=== PATIENT | female | born 1945 | race Caucasian/White ===

== ENCOUNTER 2021-07-07 14:19 | Inpatient (IN) | payer MEDICARE, MEDICAID ==
[~2021-07-07] VITALS: Ht 162.6 cm; Wt 60.9 kg
[2021-07-07 15:11] LABS: HEMOGLOBIN 13.4 gm/dl (12.3-15.3); RED BLOOD COUNT 4.47 M/UL (4.00-5.10)
[2021-07-07 15:41] LABS: BUN/CREATININE RATIO 32 (0-10)
[2021-07-07] MEDS ORDERED: ATORVASTATIN CA80 MG PO (21:10)
[2021-07-07] MEDS ORDERED: ISOSORBIDE MONO60 MG PO (21:10)
[2021-07-07] MEDS ORDERED: COREG 12.5MG12.5 MG PO (21:11)
[2021-07-07] MEDS ORDERED: PROTONIX 40 MG40 M1 PO (21:11)
[2021-07-07] MEDS ORDERED: CITALOPRAM HBR20 MG PO (21:11)
[2021-07-07] MEDS ORDERED: ASPIRIN CHEWABL81 MG PO (21:12)
[2021-07-07] MEDS ORDERED: NICOTINE PATCH1 EAC5 TD (21:12)
[2021-07-08 03:53] LABS: HEMOGLOBIN 10.7 gm/dl (12.3-15.3); RED BLOOD COUNT 3.68 M/UL (4.00-5.10); WHITE BLOOD COUNT 19.9 K/UL (4.5-11.0)
[2021-07-08] MEDS ORDERED: MELATONIN10 M2 PO (21:13)
[2021-07-09 04:41] LABS: HEMOGLOBIN 9.9 gm/dl (12.3-15.3); RED BLOOD COUNT 3.36 M/UL (4.00-5.10); WHITE BLOOD COUNT 15.3 K/UL (4.5-11.0)
[2021-07-09 04:55] LABS: BUN/CREATININE RATIO 33 (0-10)
== END 2021-07-09 21:20 | disposition short-term general hospital (02) | DRG 871 ==
LOC: ER1 14:19 → PROG CARE 18:44
PROVIDERS: Emergency Medicine; ADMIT Internal Medicine
DX: A41.9 Sepsis, unspecified organism (principal); K85.10 Biliary acute pancreatitis without necrosis or infection; Z20.822 Contact with and (suspected) exposure to COVID-19; S42.292A Other displaced fracture of upper end of left humerus, initial encounter for closed fracture; S82.041A Displaced comminuted fracture of right patella, initial encounter for closed fracture; N39.0 Urinary tract infection, site not specified; I82.401 Acute embolism and thrombosis of unspecified deep veins of right lower extremity; R18.8 Other ascites; K80.20 Calculus of gallbladder without cholecystitis without obstruction; F17.210 Nicotine dependence, cigarettes, uncomplicated; E78.5 Hyperlipidemia, unspecified; I73.9 Peripheral vascular disease, unspecified; K59.00 Constipation, unspecified; S80.812A Abrasion, left lower leg, initial encounter; S80.811A Abrasion, right lower leg, initial encounter; W01.0XXA Fall on same level from slipping, tripping and stumbling without subsequent striking against object, initial encounter; I11.9 Hypertensive heart disease without heart failure; F32.A Depression, unspecified; N28.1 Cyst of kidney, acquired; I25.10 Atherosclerotic heart disease of native coronary artery without angina pectoris; E66.9 Obesity, unspecified; Z79.01 Long term (current) use of anticoagulants; Z79.82 Long term (current) use of aspirin; Z95.1 Presence of aortocoronary bypass graft; Z98.51 Tubal ligation status; Z90.49 Acquired absence of other specified parts of digestive tract; Z82.49 Family history of ischemic heart disease and other diseases of the circulatory system; Z74.01 Bed confinement status; Z68.23 Body mass index [BMI] 23.0-23.9, adult; I25.2 Old myocardial infarction
CPT/HCPCS: 36415; 70450; 71045; 73060; 73200; 73562; 73700; 80053; 80061; 81001; 82550; 82553; 82962; 83605; 83615; 83690; 83735; 83874; 84100; 84132; 84439; 84443; 84484; 85025; 85610; 85730; 86140; 86301; 87040; 87086; 93005; 93926; 93971; 96374; 96375; 96376; 99285; C9113; J0692; J1644; J2185; J2270; J2405; J2543; J3475; J3480; J7030; U0002

== ENCOUNTER → 2022-01-07 | Outpatient (CLI) | payer MEDICARE ==
[~2022-01-07] MED LIST: ASPIRIN CHEWABL81 MG PO; ATORVASTATIN CA80 MG PO; CITALOPRAM HBR20 MG PO; CITALOPRAM HBR40 MG PO; COREG 12.5MG12.5 MG PO; ISOSORBIDE MONO60 MG PO; MELATONIN10 M2 PO; MELATONIN10 MG PO; NICOTINE PATCH1 EAC5 TD; PROBIOTIC; PROTONIX 40 MG40 M1 PO; ZYRTEC10 M3 PO
[2022-01-07 11:24] LABS: HEMOGLOBIN 11.9 gm/dl (12.3-15.3); RED BLOOD COUNT 4.33 M/UL (4.00-5.10); WHITE BLOOD COUNT 6.4 K/UL (4.5-11.0)
== END ==
LOC: OPSV2 09:00
PROVIDERS: Anesthesiology; Surgery
DX: Z01.818 Encounter for other preprocedural examination (principal)
CPT/HCPCS: 71046; 80048; 85025; 93005

== ENCOUNTER → 2022-01-15 | Day surgery (SDC) | payer MEDICARE ==
[~2022-01-15] MED LIST changes: +HYDROCODON-ACE1 EAC4 PO
== END | disposition home or self-care (01) ==
LOC: OR 06:31
DX: K80.12 Calculus of gallbladder with acute and chronic cholecystitis without obstruction (principal); K85.10 Biliary acute pancreatitis without necrosis or infection; I25.10 Atherosclerotic heart disease of native coronary artery without angina pectoris; J44.9 Chronic obstructive pulmonary disease, unspecified; I10 Essential (primary) hypertension; E78.00 Pure hypercholesterolemia, unspecified; Z87.891 Personal history of nicotine dependence; Z95.1 Presence of aortocoronary bypass graft; Z88.7 Allergy status to serum and vaccine
CPT/HCPCS: C1729; J0690; J1100; J1885; J2001; J2405; J2704; J2710; J3010; Q9967